=== PATIENT | male | born 1970 | race Caucasian/White ===

== ENCOUNTER 2016-11-20 12:55 | Emergency (ER) | payer BC ==
[~2016-11-20] VITALS: Ht 167.6 cm; Wt 85.0 kg
[2016-11-20 12:59] VITALS: BP 160/89; PULSE 74; RESP 20; O2SAT 96
--- NOTE | 2016-11-20 15:08 | RADRPT ---
EXAM DATE/TIME: 11/20/2016 14:37 [place] COMPARISON: No previous studies available for comparison. INDICATIONS : Chest pain, shortness of breath, cough. MEDICAL HISTORY : Hypertension. SURGICAL HISTORY : None. ENCOUNTER: Initial ACUITY: 4 - 6 days PAIN SCORE: 7/10 LOCATION: Bilateral chest FINDINGS: A single view of the chest demonstrates the lungs to be symmetrically aerated without evidence of mas s, infiltrate or effusion. The cardiomediastinal contours are unremarkable. Osseous structures are intact. CONCLUSION: No acute disease. Ar Espitia MD FACR on November 20, 2016 at 15:03 Board Certified Radiologist. This report was verified electronically.
[2016-11-20 16:10] LABS: AUTOMATED NEUTROPHIL # 8.8 TH/MM3 (1.8-7.7); BASOPHIL % 0.3 % (0.0-2.0); EOSINOPHIL # 0.2 TH/MM3 (0-0.4); EOSINOPHIL % 1.3 % (0.0-4.0); HEMATOCRIT 47.2 % (39.0-51.0); HEMO FLAGS DIFF FINAL; LYMPH % 24.8 % (9.0-44.0); LYMPHOCYTE # 3.3 TH/MM3 (1.0-4.8); MEAN CELL VOLUME 92.3 FL (80.0-100.0); MEAN CORPUSCULAR HEMOGLOBIN 32.4 PG (27.0-34.0); MEAN CORPUSCULAR HGB CONC 35.1 % (32.0-36.0); MONO % 7.5 % (0.0-8.0); NEUT % 66.1 % (16.0-70.0); PLATELET COUNT 297 TH/MM3 (150-450); RED BLOOD COUNT 5.12 MIL/MM3 (4.50-5.90); WHITE BLOOD COUNT 13.3 TH/MM3 (4.0-11.0)
--- NOTE | 2016-11-20 16:13 | EKG ---
Date Performed: 11/20/2016 Time Performed: 14:58:03 PTAGE: 46 years EKG: Sinus rhythm NORMAL ECG NO PREVIOUS TRACING DOCTOR: Paco Alvarenga Interpretating Date/Time 11/20/2016 16:11:38
[2016-11-20 17:35] LABS: ANION GAP 9 MEQ/L (5-15); BICARBONATE 27.4 MEQ/L (21.0-32.0); BLOOD UREA NITROGEN 11 MG/DL (7-18); CHLORIDE 106 MEQ/L (98-107); CREATINE KINASE 167 U/L (39-308); GLOMERULAR FILTRATION RATE 76 ML/MIN (>89); SODIUM (NA) 142 MEQ/L (136-145)
[2016-11-20 17:57] LABS: POTASSIUM 4.1 MEQ/L (3.5-5.1)
[2016-11-20 18:15] LABS: CKMB 0.9 NG/ML (0.5-3.6)
--- NOTE | 2016-11-20 19:45 | PD ---
HPI Chief Complaint: Chest Pain Time Seen by Provider: 19:45 Travel History International Travel<30 days: Yes Contact w/Intl Traveler<30days: Yes Name of Country Traveled to: [place] Traveled to known affect area: No History of Present Illness HPI 46-year-old male with history of hypertension, tobacco dependency, smokes approximately 5 cigarettes per day, presents to emergency department for evaluation of cough for the last week with acute onset chest pain 2 days ago. It does not radiate anywhere. It is only with cough and deep inspiration. Patient has had recent travel to [place] in the last 30 days. Denies any lower extremity edema. No lower extremity pain. No history DVT or PE. Patient has no history of LA or familial cardiac history. PFSH Past Medical History Cardiovascular Problems: Yes (HTN) Social History Tobacco Use: Yes Allergies-Medications (Allergen,Severity, Reaction): Coded Allergies: No Known Allergies (Unverified , 11/20/16) Reported Meds & Prescriptions Reported Meds & Active Scripts Active Prednisone 50 Mg Tab 50 Mg PO DAILY 5 Days Zithromax Z-Eusebio (Azithromycin) 250 Mg Dspk 250 Mg PO DIRECTED 500 MG (2 tabs) day 1, then 1 tab days 2-5. Review of Systems Except as stated in HPI: all other systems reviewed are Neg Physical Exam Narrative GENERAL: Well-nourished, well-developed male patient, in no acute distress SKIN: Warm and dry. HEAD: Normocephalic. Atraumatic EYES: No scleral icterus. No injection or drainage. NECK: Supple, trachea midline. No JVD or lymphadenopathy. CARDIOVASCULAR: Regular rate and rhythm without murmurs, gallops, or rubs. RESPIRATORY: Breath sounds coarse, equal bilaterally. No accessory muscle use. GASTROINTESTINAL: Abdomen soft, non-tender, nondistended. MUSCULOSKELETAL: No cyanosis, or edema. BACK: Nontender without obvious deformity. No CVA tenderness. Data Data Last Documented VS Vital Signs Date Time Temp Pulse Resp B/P Pulse Ox O2 Delivery O2 Flow Rate FiO2 11/20/16 21:31 98.9 71 16 152/68 99 11/20/16 20:56 Room Air Orders Electrocardiogram (11/20/16 14:32) Complete Blood Count With Diff (11/20/16 14:32) Basic Metabolic Panel (Bmp) (1/4/17 14:32) Ckmb (Isoenzyme) Profile (11/20/16 14:32) Troponin I (11/20/16 14:32) Chest, Single Ap (11/20/16 14:32) Iv Access Insert/Monitor (11/20/16 14:32) Ecg Monitoring (11/20/16 14:32) Oxygen Administration (11/20/16 14:32) Oximetry (11/20/16 14:32) CKMB (11/20/16 14:45) CKMB% (11/20/16 14:45) Troponin I (11/20/16 19:44) Ckmb (Isoenzyme) Profile (11/20/16 19:44) CKMB (11/20/16 19:55) CKMB% (11/20/16 19:55) Labs Laboratory Tests Test 11/20/16 11/20/16 14:45 19:55 White Blood Count 13.3 TH/MM3 Red Blood Count 5.12 MIL/MM3 Hemoglobin 16.6 GM/DL Hematocrit 47.2 % Mean Corpuscular Volume 92.3 FL Mean Corpuscular Hemoglobin 32.4 PG Mean Corpuscular Hemoglobin 35.1 % Concent Red Cell Distribution Width 13.0 % Platelet Count 297 TH/MM3 Mean Platelet Volume 7.8 FL Neutrophils (%) (Auto) 66.1 % Lymphocytes (%) (Auto) 24.8 % Monocytes (%) (Auto) 7.5 % Eosinophils (%) (Auto) 1.3 % Basophils (%) (Auto) 0.3 % Neutrophils # (Auto) 8.8 TH/MM3 Lymphocytes # (Auto) 3.3 TH/MM3 Monocytes # (Auto) 1.0 TH/MM3 Eosinophils # (Auto) 0.2 TH/MM3 Basophils # (Auto) 0.0 TH/MM3 CBC Comment DIFF FINAL Differential Comment Sodium Level 142 MEQ/L Potassium Level 4.1 MEQ/L Chloride Level 106 MEQ/L Carbon Dioxide Level 27.4 MEQ/L Anion Gap 9 MEQ/L Blood Urea Nitrogen 11 MG/DL Creatinine 1.05 MG/DL Estimat Glomerular Filtration 76 ML/MIN Rate Random Glucose 108 MG/DL Calcium Level 8.8 MG/DL Total Creatine Kinase 167 U/L 164 U/L Creatine Kinase MB 0.9 NG/ML 0.8 NG/ML Troponin I LESS THAN 0.02 LESS THAN 0.02 NG/ML NG/ML MDM Medical Decision Making Medical Screen Exam Complete: Yes Emergency Medical Condition: Yes Medical Record Reviewed: Yes Differential Diagnosis URI versus costochondritis versus pleuritis versus pneumonia versus less likely ACS versus PE Narrative Course 46-year-old male presents to emergency department for evaluation of chest pain associated with cough and deep inspiration. Patient was protocoled by nursing staff. Lab work is all resulted and patient remains in the triage waiting room. I have asked that I see him in triage for possible disposition. Patient appears overall well and without stress. EKG is normal sinus rhythm without ST elevation or depression. CBC is with mild leukocytosis of 13.8, otherwise without acute concern. Initial troponin is less than 0.02. Well's criteria shows low risk of PE. I have discussed the patient might a physician Dr. Howard who agrees that if repeat troponin and EKG are without acute concern, patient can be discharged home. Repeat troponins less than 0.02. EKG is normal sinus rhythm. Patient be discharged home for treatment of URI and costochondritis. He is counseled on care and agrees to return immediately with any acute worsening symptoms. Diagnosis Primary Impression: Upper respiratory infection Qualified Code: J06.9 - Upper respiratory tract infection, unspecified type Additional Impression: Costochondritis, acute Referrals: Primary Care Physician Patient Instructions: Costochondritis (ED), General Instructions, Upper Respiratory Infection (ED) Departure Forms: Tests/Procedures, Work Release Enter return to work date: Nov 22, 2016 Additional Instructions: Rest Maintain adequate oral hydration Follow-up with primary care provider Return immediately to the emergency department with any acute worsening of symptoms Med/Other Pt SpecificInfo: Prescription(s) given Scripts Prednisone 50 Mg Tab50 Mg PO DAILY 5 Days Ref 0 Prov:Lisa Jasso 11/20/16 Azithromycin (Zithromax Z-Eusebio)250 Mg [id number] Mg PO DIRECTED #1 DSPK Ref 0 500 MG (2 tabs) day 1, then 1 tab days 2-5. Prov:Lias Jasso 11/20/16 Disposition: 01 DISCHARGE HOME Condition: Stable Lisa Jasso Nov 20, 2016 19:45
[2016-11-20 20:55] LABS: CREATINE KINASE 164 U/L (39-308)
[2016-11-20 21:08] LABS: CKMB 0.8 NG/ML (0.5-3.6)
[2016-11-20] MEDS ORDERED: ZITHTAB PO (21:14)
[2016-11-20] MEDS ORDERED: PRED50 PO (21:14)
[2016-11-20 21:31] VITALS: BP 152/68; TEMP 98.9
--- NOTE | 2016-11-21 08:14 | EKG ---
Date Performed: 11/20/2016 Time Performed: 21:23:17 PTAGE: 46 years EKG: Sinus rhythm NORMAL ECG NO SIGNIFICANT CHANGE FROM PRIOR ELECTROCARDIOGRAM. PREVIOUS TRACING : 11/20/2016 14.58 DOCTOR: Paco Alvarenga Interpretating Date/Time 11/21/2016 08:12:52
== END 2016-11-20 21:31 | disposition home or self-care (01) ==
LOC: NETRI 12:55
DX: J06.9 Acute upper respiratory infection, unspecified (principal); M94.0 Chondrocostal junction syndrome [Tietze]; I10 Essential (primary) hypertension; Z72.0 Tobacco use
CPT/HCPCS: 71010; 80048; 82550; 82552; 84484; 85025; 93005